=== PATIENT | male | born 1955 | race Caucasian/White ===

== ENCOUNTER 2022-03-23 06:49 | Emergency (ER) | payer MEDICARE, OTHER ==
[2022-03-23] MEDS ORDERED: Sodium Chloride 0.9% 10 ML Syringe FLUSH PRN (07:19)
[2022-03-23] MEDS ORDERED: Sodium Chloride 0.9% 1,000 ML IV STA (07:19)
[2022-03-23] MEDS ORDERED: Ondansetron 4 MG/2 ML SDV IVPUSH ONE (07:19)
[2022-03-23] MEDS ORDERED: diphenhydrAMINE 50 MG/ML SDV IVPUSH PRN (08:50)
[2022-03-23] MEDS ORDERED: Famotidine 20 MG/2 ML SDV IVPUSH PRN (08:50)
[2022-03-23] MEDS ORDERED: EPINEPHrine 1 MG/ML SDV IM PRN (08:50)
[2022-03-23] MEDS ORDERED: methylPREDNISolone Sodium Succinate 125 MG/2 ML SDV IVPUSH PRN (08:50)
[2022-03-23] MEDS ORDERED: Sodium Chloride 0.9% 10 ML Syringe FLUSH SCH (09:00)
== END 2022-03-23 10:23 | disposition home or self-care (01) ==
LOC: JD.ED 06:49
DX: U07.1 COVID-19 (principal); I10 Essential (primary) hypertension; Z91.048 Other nonmedicinal substance allergy status
CPT/HCPCS: 36415; 71045; 80053; 83735; 84484; 85025; 93005; 96361; 96374; 99284; J2405; J3490; J7030; Q0222; U0002; 93010; M0222

== ENCOUNTER 2022-06-05 07:38 | Day surgery (SDC) | payer MEDICARE, OTHER ==
[~2022-06-05 07:38] MED LIST: Lactated Ringers 1,000 ML IV SCH; Lidocaine 1%/Sod Bicarbonate in NS 8.4% 1 ML Syringe IDERM PRN; Sodium Chloride 0.9% 10 ML Syringe FLUSH PRN; Sodium Chloride 0.9% 10 ML Syringe FLUSH SCH
[2022-06-05] MEDS ORDERED: Propofol 200 MG/20 ML SDV ONE (09:14)
[2022-06-05] MEDS ORDERED: Lidocaine 1% 6 ML ONE (09:14)
[2022-06-05] MEDS ORDERED: Midazolam 1 MG/ML 2 ML SDV ONE (09:14)
[2022-06-05] MEDS ORDERED: fentaNYL 100 MCG/2 ML SDV ONE (09:38)
== END 2022-06-05 11:56 | disposition home or self-care (01) ==
LOC: JD.SDS 07:38
PROVIDERS: ATTEND Surgery
DX: Z12.11 Encounter for screening for malignant neoplasm of colon (principal); K57.30 Diverticulosis of large intestine without perforation or abscess without bleeding; K22.70 Barrett's esophagus without dysplasia; K21.00 Gastro-esophageal reflux disease with esophagitis, without bleeding; R13.10 Dysphagia, unspecified; K44.9 Diaphragmatic hernia without obstruction or gangrene; K29.60 Other gastritis without bleeding; K64.4 Residual hemorrhoidal skin tags; K21.9 Gastro-esophageal reflux disease without esophagitis; I25.10 Atherosclerotic heart disease of native coronary artery without angina pectoris; F32.A Depression, unspecified; F41.9 Anxiety disorder, unspecified; E78.00 Pure hypercholesterolemia, unspecified; Z79.82 Long term (current) use of aspirin; Z79.899 Other long term (current) drug therapy
CPT/HCPCS: 43239; G0121; J2250; J2704; J3010; J7120; 00813

== ENCOUNTER 2022-07-22 14:22 | Emergency (ER) | payer MEDICARE, OTHER ==
[2022-07-22] MEDS ORDERED: Sodium Chloride 0.9% 10 ML Syringe FLUSH PRN (15:02)
[2022-07-22 15:52] LABS: ESTIMATED GFR 84 mL/min (>60)
[2022-07-22] MEDS ORDERED: Furosemide 40 MG Tab PO ONE (16:51)
== END 2022-07-22 17:10 | disposition home or self-care (01) ==
LOC: JD.ED 14:22
DX: I11.0 Hypertensive heart disease with heart failure (principal); I50.9 Heart failure, unspecified; E78.00 Pure hypercholesterolemia, unspecified; K21.9 Gastro-esophageal reflux disease without esophagitis; Z79.82 Long term (current) use of aspirin; Z79.899 Other long term (current) drug therapy
CPT/HCPCS: 36415; 71045; 71045-26; 80053; 82553; 83735; 83880; 84484; 85025; 85610; 85730; 86140; 93005; 99285; A9270-GY; J3490

== ENCOUNTER 2022-08-09 12:56 | Emergency (ER) | payer MEDICARE, OTHER ==
[2022-08-09] MEDS ORDERED: Ondansetron 4 MG/2 ML SDV IVPUSH ONE (14:04)
[2022-08-09] MEDS ORDERED: HYDROmorphone 1 MG/ML Syringe IVPUSH STA (14:04)
[2022-08-09] MEDS ORDERED: Sodium Chloride 0.9% 1,000 ML IV SCH (14:15)
[2022-08-09] MEDS ORDERED: Iopamidol 612 MG/ML 100 ML Bottle IVPUSH ONE (14:16)
[2022-08-09] MEDS ORDERED: Sodium Chloride 0.9% 100 ML IV SCH (14:30)
[2022-08-09] MEDS: Sodium Chloride 0.9% 10 ML Syringe FLUSH PRN ×2 (14:35→14:50)
[2022-08-09] MEDS ORDERED: Iopamidol 612 MG/ML 50 ML SDV IVPUSH ONE (14:50)
[2022-08-09] MEDS ORDERED: Tamsulosin 0.4 MG Cap.ER PO ONE (15:26)
== END 2022-08-09 17:26 | disposition home or self-care (01) ==
LOC: JD.ED 12:56
DX: N20.2 Calculus of kidney with calculus of ureter (principal); E78.00 Pure hypercholesterolemia, unspecified; I10 Essential (primary) hypertension; K21.9 Gastro-esophageal reflux disease without esophagitis; Z79.82 Long term (current) use of aspirin; Z79.899 Other long term (current) drug therapy
CPT/HCPCS: 36415; 74178; 80053; 81001; 85025; 96361; 96374; 96375; 99284; A9270; J1170; J2405; J3490; J7030; Q9967

== ENCOUNTER 2022-10-09 09:14 | Emergency (ER) | payer MEDICARE, OTHER ==
[2022-10-09] MEDS ORDERED: Ondansetron 4 MG/2 ML SDV IVPUSH ONE (09:58)
[2022-10-09] MEDS ORDERED: Sodium Chloride 0.9% 10 ML Syringe FLUSH PRN (09:58)
[2022-10-09] MEDS ORDERED: REMDESIVIR 200 MG in Sodium Chloride 0.9% 250 ML IV ONE (09:59)
[2022-10-09] MEDS ORDERED: Sodium Chloride 0.9% 1,000 ML IV SCH (10:00)
[2022-10-09] MEDS ORDERED: Sodium Chloride 0.9% 1,000 ML ONE (10:24)
[2022-10-09 11:31] LABS: ESTIMATED GFR 75 mL/min (>60)
== END 2022-10-09 12:09 | disposition home or self-care (01) ==
LOC: JD.ED 09:14
DX: U07.1 COVID-19 (principal); E78.00 Pure hypercholesterolemia, unspecified; I10 Essential (primary) hypertension; Z79.82 Long term (current) use of aspirin; Z79.899 Other long term (current) drug therapy; Z86.16 Personal history of COVID-19
CPT/HCPCS: 36415; 71045; 80053; 85025; 86140; 96365; 96375; 99285; J0248; J2405; J7030; J7050; 99284

== ENCOUNTER 2023-02-10 04:53 | Emergency (ER) | payer MEDICARE, OTHER ==
[2023-02-10 05:27] LABS: BASOPHILS ABSOLUTE AUTO 0.02 K/mm3 (0.01-0.08); BASOPHILS PERCENT AUTO 0.3 % (0.1-1.2); EOSINOPHILS ABSOLUTE AUTO 0.03 K/mm3 (0.04-0.54); EOSINOPHILS PERCENT AUTO 0.5 (0.8-7.0); HEMOGLOBIN 14.6 gm/dl (13.7-17.5); IMMATURE GRAN ABSOLUTE AUTO 0.05 K/mm3 (0.00-0.10); IMMATURE GRAN PERCENT AUTO 0.8 % (<=1.0); LYMPHOCYTES ABSOLUTE AUTO 1.24 K/mm3 (1.32-3.57); MEAN CORPUSCULAR HEMOGLOBIN 30.5 pg (25.7-32.2); MEAN PLATELET VOLUME 10.6 fl (9.4-12.3); MONOCYTES ABSOLUTE AUTO 0.63 K/mm3 (0.30-0.82); MONOCYTES PERCENT AUTO 10.7 % (5.3-12.2); NEUTROPHILS ABSOLUTE AUTO 3.94 K/mm3 (1.78-5.38); NEUTROPHILS PERCENT AUTO 66.7 % (34.0-67.9); PLATELET COUNT,PLT 210 K/mm3 (163-337); RED BLOOD CELL COUNT 4.78 M/mm3 (4.63-6.08); WHITE BLOOD CELL COUNT,WBC 5.91 K/mm3 (4.23-9.07)
[2023-02-10 05:47] LABS: A/G RATIO 1.1 (1-2); ALANINE AMINOTRANSFERASE,ALT 385 U/L (16-63); ALBUMIN 3.8 g/dl (3.4-5.0); ALKALINE PHOSPHATASE 297 U/L (46-116); ANION GAP 16.9 (5-15); ASPARTATE AMNIOTRANSFERASE,AST 528 U/L (15-37); BILIRUBIN TOTAL 2.8 mg/dL (0.2-1.0); BLOOD UREA NITROGEN,BUN 18 mg/dL (7-18); BUN/CREATININE RATIO 16.4 (14-18); CALCIUM 9.2 mg/dL (8.5-10.1); CARBON DIOXIDE,CO2 25 mEq/L (21-32); CHLORIDE,CL 99 mEq/L (98-107); CREATININE 1.1 mg/dL (0.7-1.3); EST CRCL DRUG DOSING (CG) 66.06 mL/min; ESTIMATED GFR 74 mL/min (>60); GLUCOSE RANDOM 133 mg/dL (70-99); POTASSIUM,K 3.9 mEq/L (3.5-5.1); PROTEIN TOTAL,TP 7.4 g/dl (6.4-8.2); SODIUM,NA 137 mEq/L (136-145); TROPONIN I HIGH SENSITIVITY < 4 pg/mL (<=76)
[2023-02-10 05:52] LABS: INR 0.97; PROTHROMBIN TIME 10.4 SECONDS (9.7-12.0)
[2023-02-10] MEDS ORDERED: Alum Hydrox/Mag Hydrox/Simeth 30 ML, Lidocaine 2% 15 ML PO ONE ×2 (06:07)
== END 2023-02-10 06:25 | disposition home or self-care (01) ==
LOC: JD.ED 04:53
DX: K21.9 Gastro-esophageal reflux disease without esophagitis (principal); E78.00 Pure hypercholesterolemia, unspecified; I10 Essential (primary) hypertension; Z79.82 Long term (current) use of aspirin; Z79.899 Other long term (current) drug therapy; Z79.02 Long term (current) use of antithrombotics/antiplatelets; Z86.16 Personal history of COVID-19
CPT/HCPCS: 36415; 71045; 80053; 84484; 85025; 85610; 93005; 99285; A9270; 93010; 99284

== ENCOUNTER 2024-07-18 13:52 | Emergency (ER) | payer MEDICARE, OTHER, MEDICAID ==
[2024-07-18] MEDS: Penicillin V Potassium 500 MG Tab PO SCH (18:40)
== END 2024-07-18 19:27 | disposition home or self-care (01) ==
LOC: JD.ED 13:52
DX: S01.512A Laceration without foreign body of oral cavity, initial encounter (principal); K04.7 Periapical abscess without sinus; I25.2 Old myocardial infarction; I10 Essential (primary) hypertension; J44.9 Chronic obstructive pulmonary disease, unspecified; K21.9 Gastro-esophageal reflux disease without esophagitis; E03.9 Hypothyroidism, unspecified; Z86.16 Personal history of COVID-19; Z79.890 Hormone replacement therapy; Z79.899 Other long term (current) drug therapy; X58.XXXA Exposure to other specified factors, initial encounter
CPT/HCPCS: 99283; A9270

== ENCOUNTER 2024-12-31 07:03 | Day surgery (SDC) | payer MEDICARE, OTHER, MEDICAID ==
[~2024-12-31 07:03] MED LIST changes: -Lactated Ringers 1,000 ML IV SCH; -Lidocaine 1%/Sod Bicarbonate in NS 8.4% 1 ML Syringe IDERM PRN
[2024-12-31] MEDS ORDERED: Propofol 200 MG/20 ML SDV ONE (07:12)
[2024-12-31] MEDS ORDERED: Lidocaine 1% 6 ML ONE (07:12)
[2024-12-31] MEDS: Lactated Ringers 1,000 ML IV SCH (07:45)
== END 2024-12-31 09:47 | disposition home or self-care (01) ==
LOC: JD.SDS 07:03
PROVIDERS: ATTEND Surgery
DX: K21.9 Gastro-esophageal reflux disease without esophagitis (principal); R13.10 Dysphagia, unspecified; K44.9 Diaphragmatic hernia without obstruction or gangrene; I10 Essential (primary) hypertension; J44.9 Chronic obstructive pulmonary disease, unspecified; E03.9 Hypothyroidism, unspecified; Z79.890 Hormone replacement therapy; Z79.899 Other long term (current) drug therapy
CPT/HCPCS: 43239; C9777; J2003; J2704; J7120

== ENCOUNTER 2025-02-02 08:13 | Observation (INO) | payer MEDICARE, OTHER, MEDICAID ==
[~2025-02-02 08:13] MED LIST changes: +Dexamethasone 4 MG/ML 5 ML MDV ONE; +Ondansetron 4 MG/2 ML SDV ONE; +Propofol 200 MG/20 ML SDV ONE; +Rocuronium 50 MG/5 ML Vial ONE; -Sodium Chloride 0.9% 10 ML Syringe FLUSH PRN; -Sodium Chloride 0.9% 10 ML Syringe FLUSH SCH; +ceFAZolin 2 GM Vial ONE; +dexmedeTOMIDine HCl 200 MCG/2 ML SDV ONE; +fentaNYL 250 MCG/5 ML SDV ONE
[2025-02-02] MEDS: Lactated Ringers 1,000 ML IV SCH ×2 (08:35→23:37)
[2025-02-02] MEDS ORDERED: Propofol 200 MG/20 ML SDV ONE ×5 (08:57→10:31)
[2025-02-02] MEDS ORDERED: HYDROmorphone 0.5 MG/0.5 ML Syringe ONE ×2 (09:01→09:02)
[2025-02-02] MEDS ORDERED: Rocuronium 50 MG/5 ML Vial ONE (09:08)
[2025-02-02] MEDS ORDERED: Labetalol 100 MG/20 ML MDV ONE (09:10)
[2025-02-02] MEDS ORDERED: Lactated Ringers 1,000 ML ONE (09:14)
[2025-02-02] MEDS: Bupivacaine 0.5% 30 ML SDV ONE (09:53)
[2025-02-02] MEDS: EPINEPHrine 1 MG/ML SDV ONE (09:53)
[2025-02-02] MEDS ORDERED: fentaNYL 100 MCG/2 ML SDV ONE (10:00)
[2025-02-02] MEDS ORDERED: Sugammadex Sodium 200 MG/2 ML VIAL IV ONE ×2 (10:48→11:10)
[2025-02-02] MEDS ORDERED: Ondansetron 4 MG Tab.DIS PO PRN (11:58)
[2025-02-02] MEDS ORDERED: Ondansetron 4 MG/2 ML SDV IV PRN (11:58)
[2025-02-02] MEDS ORDERED: HYDROmorphone 0.5 MG/0.5 ML Syringe IVPUSH PRN ×2 (11:58→12:31)
[2025-02-02] MEDS ORDERED: oxyCODONE 5 MG Tab PO PRN (11:58)
[2025-02-02] MEDS ORDERED: Simethicone 80 MG Tab.Chew PO PRN (12:04)
[2025-02-02] MEDS ORDERED: diphenhydrAMINE 50 MG/ML SDV IVPUSH PRN (12:05)
[2025-02-02] MEDS ORDERED: Benzocaine/Cetylpyridinium/Menthol Lozenge MUCMEM PRN (12:05)
[2025-02-02] MEDS ORDERED: Ondansetron 4 MG/2 ML SDV IVPUSH PRN (12:31)
[2025-02-02] MEDS ORDERED: fentaNYL 100 MCG/2 ML SDV IVPUSH PRN (12:31)
[2025-02-02] MEDS: Acetaminophen 325 MG Tab PO PRN (16:48)
[2025-02-03 04:24] LABS: BASOPHILS PERCENT AUTO 0.2 % (0.0-1.0); HEMATOCRIT 37.8 % (42.0-52.0); HEMOGLOBIN 12.8 gm/dl (14.0-18.0); IMMATURE GRAN ABSOLUTE AUTO 0.04 K/mm3 (0.00-0.05); IMMATURE GRAN PERCENT AUTO 0.4 % (0.0-0.4); LYMPHOCYTES ABSOLUTE AUTO 0.8 K/mm3 (1.0-4.8); LYMPHOCYTES PERCENT AUTO 7.6 % (24.0-44.0); MEAN CORPUSCULAR HEMOGLOBIN 29.9 pg (28.0-32.0); MEAN CORPUSCULAR HGB CONC 33.9 g/dl (32.0-36.0); MEAN CORPUSCULAR VOLUME 88.3 fl (83.0-99.0); MONOCYTES ABSOLUTE AUTO 0.8 K/mm3 (0.0-0.8); MONOCYTES PERCENT AUTO 8.3 % (0.0-8.0); NEUTROPHILS ABSOLUTE AUTO 8.4 K/mm3 (1.8-7.7); NEUTROPHILS PERCENT AUTO 83.5 % (41.0-71.0); PLATELET COUNT,PLT 170 K/mm3 (150-400); RED BLOOD CELL COUNT 4.28 M/mm3 (4.52-5.90)
[2025-02-03 04:33] LABS: ANION GAP 10.7 (5-15); BUN/CREATININE RATIO 13.3 (14-18); CALCIUM 8.8 mg/dL (8.5-10.1); CREATININE 0.9 mg/dL (0.7-1.3); EST CRCL DRUG DOSING (CG) 79.65 mL/min; POTASSIUM,K 4.7 mEq/L (3.5-5.1)
[2025-02-03] MEDS: Levothyroxine 50 MCG Tab PO SCH (05:32)
[2025-02-03] MEDS: Citalopram 20 MG Tab PO SCH (08:09)
[2025-02-03] MEDS ORDERED: atorvaSTATin 40 MG Tab PO SCH (21:00)
[2025-02-04] MEDS ORDERED: ARIPiprazole 5 MG Tab PO SCH (09:00)
== END 2025-02-03 14:04 | disposition home or self-care (01) ==
LOC: INTOOBSV 08:13 → JD.MS 08:13
PROVIDERS: ADMIT Surgery; ATTEND Surgery
DX: K44.9 Diaphragmatic hernia without obstruction or gangrene (principal); K21.9 Gastro-esophageal reflux disease without esophagitis; J44.9 Chronic obstructive pulmonary disease, unspecified; I25.10 Atherosclerotic heart disease of native coronary artery without angina pectoris; I10 Essential (primary) hypertension; E78.00 Pure hypercholesterolemia, unspecified; Z79.899 Other long term (current) drug therapy
CPT/HCPCS: 36415; 43280; 80048; 82947; 85025; A9270; J0171; J0665; J0690; J1100; J1920; J2405; J2704; J3010; J7120; J3490

== ENCOUNTER 2025-06-22 10:00 | Emergency (ER) | payer MEDICARE, OTHER, MEDICAID ==
[2025-06-22 10:41] LABS: BASOPHILS ABSOLUTE AUTO 0.0 K/mm3 (0.0-0.2); BASOPHILS PERCENT AUTO 0.4 % (0.0-1.0); EOSINOPHILS ABSOLUTE AUTO 0.0 K/mm3 (0.0-0.4); EOSINOPHILS PERCENT AUTO 0.3 % (0.0-6.0); IMMATURE GRAN ABSOLUTE AUTO 0.06 K/mm3 (0.00-0.05); IMMATURE GRAN PERCENT AUTO 0.5 % (0.0-0.4); LYMPHOCYTES ABSOLUTE AUTO 0.8 K/mm3 (1.0-4.8); LYMPHOCYTES PERCENT AUTO 7.0 % (24.0-44.0); MEAN PLATELET VOLUME 11.4 fl (9.4-12.4); MONOCYTES ABSOLUTE AUTO 0.4 K/mm3 (0.0-0.8); MONOCYTES PERCENT AUTO 3.7 % (0.0-8.0); NEUTROPHILS ABSOLUTE AUTO 9.9 K/mm3 (1.8-7.7); NEUTROPHILS PERCENT AUTO 88.1 % (41.0-71.0); NRBC ABSOLUTE 0.00 (0.00-0.02); NRBC PERCENT 0.0 % (0.0-0.2); PLATELET COUNT,PLT 190 K/mm3 (150-400); RED BLOOD CELL COUNT 4.66 M/mm3 (4.52-5.90); WHITE BLOOD CELL COUNT,WBC 11.22 K/mm3 (3.9-11.3)
[2025-06-22 11:11] LABS: A/G RATIO 1.1 (1-2); ALANINE AMINOTRANSFERASE,ALT 18.0 U/L (16-63); ASPARTATE AMNIOTRANSFERASE,AST 16.0 U/L (15-37); BILIRUBIN TOTAL 1.1 mg/dL (0.2-1.0); BLOOD UREA NITROGEN,BUN 13.0 mg/dL (7-18); CARBON DIOXIDE,CO2 29.0 mEq/L (21-32); CHLORIDE,CL 104.0 mEq/L (98-107); CREATININE 1.0 mg/dL (0.7-1.3); EST CRCL DRUG DOSING (CG) 68.4 mL/min; ESTIMATED GFR 82.0 mL/min (>60); GLUCOSE RANDOM 161.0 mg/dL (70-99); POTASSIUM,K 3.0 mEq/L (3.5-5.1); PROTEIN TOTAL,TP 6.7 g/dl (6.4-8.2); SODIUM,NA 141.0 mEq/L (136-145); TROPONIN I HIGH SENSITIVITY 5.0 pg/mL (<=76)
[2025-06-22 11:21] LABS: INR 1.05
[2025-06-22 11:23] LABS: PTT,PARTIAL THROMBOPLSTIN TIME 23.6 SECONDS (21.7-31.4)
[2025-06-22] MEDS: SODIUM CHLORIDE 0.9% IV ONE (11:59)
[2025-06-22] MEDS: Sodium Chloride 0.9% 10 ML Syringe FLUSH PRN (11:59)
[2025-06-22] MEDS: DESMOPRESSIN IV ONE (11:59)
== END 2025-06-22 12:30 ==
LOC: JD.ED 10:00
DX: S06.5XAA Traumatic subdural hemorrhage with loss of consciousness status unknown, initial encounter (principal); I25.2 Old myocardial infarction; I10 Essential (primary) hypertension; Z95.5 Presence of coronary angioplasty implant and graft; J44.9 Chronic obstructive pulmonary disease, unspecified; K21.9 Gastro-esophageal reflux disease without esophagitis; E03.9 Hypothyroidism, unspecified; Z79.899 Other long term (current) drug therapy; Z79.02 Long term (current) use of antithrombotics/antiplatelets; Z79.890 Hormone replacement therapy; Z86.16 Personal history of COVID-19; W18.39XA Other fall on same level, initial encounter; Y93.89 Activity, other specified
CPT/HCPCS: 36415; 70450; 72125; 80053; 84484; 85025; 85610; 85730; 93005; 96365; 99285; A9270; 93010; J2597